=== PATIENT | female | born 1935 | race Caucasian/White ===

== ENCOUNTER 2019-06-26 17:46 | Emergency (ER) | payer MEDICARE, BC ==
[~2019-06-26] VITALS: Ht 160 cm; Wt 90.5 kg
[~2019-06-26 17:46] MED LIST: HYDR12.522 PO; LEVO88TA28 PO
[2019-06-26 17:48] VITALS: BP 146/69
--- NOTE | 2019-06-26 18:39 | NUR ---
pt is 83 yo female c/o left forearm pain, swelling s/p grd level fall today, +cmst to left hand, no dizziness, CP prior to fall, pt said she tripped and fell on carpet, waiting to be evaluated by provider
== END 2019-06-26 19:54 | disposition home or self-care (01) ==
LOC: ER 17:47
DX: S52.692A Other fracture of lower end of left ulna, initial encounter for closed fracture (principal); J45.909 Unspecified asthma, uncomplicated; I10 Essential (primary) hypertension; E11.9 Type 2 diabetes mellitus without complications; G89.29 Other chronic pain; G47.30 Sleep apnea, unspecified; Z90.710 Acquired absence of both cervix and uterus; Z98.890 Other specified postprocedural states; Z60.2 Problems related to living alone; Z88.8 Allergy status to other drugs, medicaments and biological substances; Z79.899 Other long term (current) drug therapy; W01.0XXA Fall on same level from slipping, tripping and stumbling without subsequent striking against object, initial encounter; Y93.89 Activity, other specified; Y92.89 Other specified places as the place of occurrence of the external cause; Y99.8 Other external cause status
CPT/HCPCS: 29105; 73090; 99284

== ENCOUNTER 2019-07-03 13:55 | Emergency (ER) | payer MEDICARE, BC ==
[~2019-07-03] VITALS: Ht 160 cm; Wt 84.0 kg
[2019-07-03 14:15] VITALS: BP 154/79
[2019-07-03] MEDS ORDERED: HYDR-3965 PO (15:39)
== END 2019-07-03 16:00 | disposition home or self-care (01) ==
LOC: ER 13:56
DX: S52.202D Unspecified fracture of shaft of left ulna, subsequent encounter for closed fracture with routine healing (principal); I10 Essential (primary) hypertension; J45.909 Unspecified asthma, uncomplicated; E11.9 Type 2 diabetes mellitus without complications; G47.30 Sleep apnea, unspecified; G89.29 Other chronic pain; Z90.710 Acquired absence of both cervix and uterus; Z98.890 Other specified postprocedural states; Z60.2 Problems related to living alone; Z88.8 Allergy status to other drugs, medicaments and biological substances; Z88.7 Allergy status to serum and vaccine; Z79.899 Other long term (current) drug therapy; W18.39XD Other fall on same level, subsequent encounter
CPT/HCPCS: 99284

== ENCOUNTER 2019-07-09 14:58 | Outpatient (CLI) | payer MEDICARE, BC ==
[~2019-07-09 14:58] MED LIST changes: +HYDR-3965 PO
== END 2019-07-09 17:30 | disposition home or self-care (01) ==
LOC: ORTHO 14:58
PROVIDERS: ATTEND Orthopaedic Surgery
DX: S52.692D Other fracture of lower end of left ulna, subsequent encounter for closed fracture with routine healing (principal); X58.XXXD Exposure to other specified factors, subsequent encounter
CPT/HCPCS: 73110; G0463

== ENCOUNTER 2019-08-06 09:28 | Outpatient (CLI) | payer MEDICARE, BC ==
[~2019-08-06 09:28] MED LIST changes: -HYDR-3965 PO
== END 2019-08-06 10:10 | disposition home or self-care (01) ==
LOC: ORTHO 09:28
PROVIDERS: ATTEND Nurse Practitioner
DX: S52.692D Other fracture of lower end of left ulna, subsequent encounter for closed fracture with routine healing (principal); X58.XXXD Exposure to other specified factors, subsequent encounter
CPT/HCPCS: 73110; A4590; G0463

== ENCOUNTER 2019-09-01 15:29 | Outpatient (CLI) | payer MEDICARE, BC | END 2019-09-01 16:07 | disposition home or self-care (01) | LOC: ORTHO 15:29 | PROVIDERS: ATTEND Orthopaedic Surgery | DX: S52.692D Other fracture of lower end of left ulna, subsequent encounter for closed fracture with routine healing (principal); X58.XXXD Exposure to other specified factors, subsequent encounter | CPT/HCPCS: 73110; G0463 ==

== ENCOUNTER 2019-09-22 15:32 | Outpatient (CLI) | payer MEDICARE, BC | END 2019-09-22 16:19 | disposition home or self-care (01) | LOC: ORTHO 15:32 | PROVIDERS: ATTEND Orthopaedic Surgery | DX: S52.602D Unspecified fracture of lower end of left ulna, subsequent encounter for closed fracture with routine healing (principal); M21.832 Other specified acquired deformities of left forearm; M19.032 Primary osteoarthritis, left wrist; M79.89 Other specified soft tissue disorders; X58.XXXD Exposure to other specified factors, subsequent encounter | CPT/HCPCS: 73110; G0463 ==